=== PATIENT | female | born 1985 | race Caucasian/White ===

== ENCOUNTER 2023-08-04 08:29 | Emergency (ER) | payer OTHER, SELFPAY ==
[2023-08-04 08:33] VITALS: BP 147/89; PULSE 89; RESP 20; TEMP 37; O2SAT 98; BMI 29.2
[2023-08-04 09:09] LABS: Influenza Virus A Antigen Negative; Influenza Virus B Antigen Negative; Internal Control Within Normal Limits
--- NOTE | 2023-08-04 09:28 | XR_ITS ---
[facility] [id number] Patient Name: SHELBY RICHARDSON MRN: [id number] date: 1985 Sex: F Assigned Patient Location: ER Current Patient Location: Accession/Order Number: [id number] Exam Date: 08/04/2023 09:35 Report Date: 08/04/2023 10:09 At the request of: ROSEMARIE STRAUSS Procedure: XR chest 1V XR chest 1V 08/04/2023 9:35 AM EST INDICATION: Dyspnea x2 days COMPARISON: No prior radiograph the chest available for comparison at the time of this dictation. FINDINGS: Cardiomediastinal silhouette within normal limits. Bilateral perihilar bronchial wall thickening. No lobar consolidation or pleural effusion. No pneumothorax. Radiopaque foreign bodies overlying the areola bilaterally likely body piercings. No acute fracture or dislocation XR/XR chest 1V IMPRESSION: Inflammatory versus infectious bronchitis/bronchiolitis. Electronically authenticated by: CHAYO ECHEVERRIA Date: 08/04/2023 10:09
--- NOTE | 2023-08-04 09:29 | ED_ITS ---
HPI - URI/Sore Throat General Chief Complaint: Upper Respiratory Infection Stated Complaint: URTI Time Seen by Provider: 08/04/23 09:28 Source: patient Limitations: no limitations History of Present Illness HPI Narrative: patient presents with onset of chills, slight sore throat, aches and pains her whole body. Headache. , l loose stool diarrhea. She's had Covid previously. She did take a Covid test today at home and it was negative.she did not have a shortness of breath her pulse oximetry here is ninety-eight percent with no labored respiratory effort. She's not on any antibiotics. Related Data Home Medications Medication Instructions Recorded Confirmed hydroxyzine pamoate 25 mg capsule 25 mg PO BID 08/04/23 08/04/23 Allergies Allergy/AdvReac Type Severity Reaction Status Date / Time No Known Drug Allergies Allergy Verified 08/04/23 08:33 PFSH PFS Social History Smoking status: Former smoker Exam Narrative Exam Narrative: vital signs are stable afebrile pulse oximetry normal. There is no respiratory distress. She moves about comfortably. She does not appear ill but does appear like she feels uncomfortable. There is no bronchospasm or coughing while we were interviewing the patient. Skin is warm and dry. A influenza test had been done and is negative. With her having congestion in her chest we will rule out pneumonia with a chest x-ray. She has classic symptoms of viremia. Neurological examination is no evidence of abnormal cognition or meningeal irritation. Constitutional Vital Signs, click to edit/add: Last Vital Signs Temp 98.6 F 08/04/23 08:33 Pulse 89 08/04/23 08:33 Resp 20 08/04/23 08:33 BP 147/89 H 08/04/23 08:33 Pulse Ox 98 08/04/23 08:33 O2 Del Method Room Air 08/04/23 08:33 Course Vital Signs Vital signs: Vital Signs Temperature 98.6 F 08/04/23 08:33 Pulse Rate 89 08/04/23 08:33 Respiratory Rate 20 08/04/23 08:33 Blood Pressure 147/89 H 08/04/23 08:33 Pulse Oximetry 98 08/04/23 08:33 Oxygen Delivery Method Room Air 08/04/23 08:33 Temperature 98.6 F 08/04/23 08:33 Pulse Rate 89 08/04/23 08:33 Respiratory Rate 20 08/04/23 08:33 Blood Pressure 147/89 H 08/04/23 08:33 Pulse Oximetry 98 08/04/23 08:33 Oxygen Delivery Method Room Air 08/04/23 08:33 MDM - URI/Sore Throat MDM Narrative Medical decision making narrative: patient pills with constitutional symptoms consistent with a viremia. I encouraged her repeat Covid testing in forty-eight hours since we are now seeing and uptick. Influenza is negative chest x-rays normal vitals are stable no hypox emia. Supportive care was advised Lab Data Labs: Lab Results 08/04/23 Range/Units 08:45 Influenza Type A Ag Negative Influenza Type B Ag Negative Discharge Plan Discharge Chief Complaint: Upper Respiratory Infection Clinical Impression: Viremia Patient Disposition: Home, Self-Care Time of Disposition Decision: 09:43 Prescriptions / Home Meds: No Action hydroxyzine pamoate 25 mg capsule 25 mg PO BID Additional Instructions: alternate ibuprofen with Tylenol for fever control. Repeat Covid test forty- eight hours. Take plenty fluids to stay hydrated. Return for any difficulty breathing Stand Alone Forms: Portal Instructions Referrals: Physician,Non-Staff, [Primary Care Provider] - 1 week
== END 2023-08-04 09:51 | disposition home or self-care (01) ==
PROVIDERS: Emergency Provider Emergency Medicine Emergency Medical Services
DX: B34.9 Viral infection, unspecified (principal); Z87.891 Personal history of nicotine dependence; Z86.16 Personal history of COVID-19; Z79.899 Other long term (current) drug therapy
CPT/HCPCS: 71045; 87804; 99283

== ENCOUNTER 2023-12-11 18:05 | Emergency (ER) | payer OTHER, SELFPAY ==
[2023-12-11 18:10] VITALS: BP 159/89; PULSE 95; TEMP 37.7; O2SAT 98; BMI 28.3
--- OUTSIDE RECORDS SUMMARY | 2023-12-11 18:13 | XMS_ITS | CCD ---
Author Organization [facility] Care Team Providers Care Floor Cleaner Name Role Phone Jase Parish Unavailable MARKER, DR ALARCON Attending Unavailable MARKER, DR ALARCON Consulting Unavailable MISC, DR ROSE Primary Care Unavailable MARKER, DR ALARCON Admitting Unavailable TORIN ENGEL Consulting Unavailable MARKER, DR ALARCON Admitting Unavailable MARKER, DR ALARCON Attending Unavailable MARKER, DR ALARCON Consulting Unavailable MISC, DR ROSE Primary Care Unavailable Medications Current Medications Medication Drug Class(es) Dates Sig (Normalized) Sig (Original) acetaminophen 325 mg / HYDROcodone bitartrate 5 mg oral tablet (1 source) Opioid Agonist Start: 09-20-2021 take 1 tablet by mouth every four hours as needed for pain HYDROcodone-Aceta minophen 5-325 MG 1 tablet as needed for pain Orally up to every 4 hrs for 5 days Sep, Active Completed/Discontinued Medications Medication Drug Class(es) Dates Sig (Normalized) Sig (Original) hydrOXYzine hydrochloride 25 mg oral tablet (1 source) Antihistamine Start: 06-26-2016 take 1 tablet by mouth every eight hours hydrOXYzine HCl 25 MG 1 tablet as needed Orally every 8 hrs Jun, Not-Taking methylPREDNISolone 4 mg oral tablet (1 source) Corticosteroid Start: 06-26-2016 Medrol 4 MG as directed Orally Jun, Not-Taking metroNIDAZOLE 500 mg oral tablet (1 source) Nitroimidazole Antimicrobial Start: 01-13-2021 take 1 tablet by mouth every twelve hours metroNIDAZOLE 500 MG 1 tablet Orally Twice a day for 7 days January, Not-Taking Problems Active Problems Problem Classification Problem Date Documented Da te Episodic/Chronic Other upper respiratory infections (1 source) Acute upper respiratory infection, unspecified; Translations: [ACUTE UP RESPIRATORY INFECTION UNS] Onset: 04-14-2022 Episodic Otitis media and related conditions (1 source) Otitis media, unspecified, left ear; Translations: [OTITIS MEDIA UNSPECIFIED LEFT EAR] Onset: 04-14-2022 Episodic Substance-related disorders (1 source) Nicotine dependence, cigarettes, uncomplicated; Translations: [NICOTINE DEPEND CIGARETTES UNCOMP] Onset: 04-14-2022 Chronic Unclassified (3 sources) COUGH, UNSPECIFIED; Translations: [COUGH, UNSPECIFIED] Onset: 04-14-2022 Past or Other Problems Problem Classification Problem Date Documented Da te Episodic/Chronic E Codes: Fall (1 source) Fall on same level due to ice and snow, initial encounter; Translations: [FALL SAME LEVEL D/T ICE SNOW INIT] Onset: 09-19-2021 Episodic Other connective tissue disease (3 sources) Pain in right foot; Translations: [PAIN IN RIGHT FOOT] Onset: 09-15-2021 Episodic Screening and history of mental health and substance abuse codes (1 source) Personal history of nicotine dependence; Translations: [PERSONAL HISTORY OF NICOTINE DEPEND] Onset: 09-19-2021 Episodic Sprains and strains (3 sources) Sprain of unspecified ligament of right ankle, initial encounter; Translations: [Unspecified sprain of right foot, initial encounter] Onset: 09-19-2021 Resolved: 09-20-2021 Episodic Unclassified (1 source) COUGH, UNSPECIFIED; Translations: [COUGH, UNSPECIFIED] Onset: 04-13-2022 Results Test Name Value Interpretation Reference Range Facility XR FOOT RT MIN 3 VIEWSon XR FOOT RT MIN 3 VIEWS EXAM: XR FOOT RT MIN 3 VIEWS, XR ANKLE RT MIN 3 VIEWS HISTORY: Arthralgia of the ankle and/or foot COMPARISON: None. TECHNIQUE: 3 views of the right ankle and 3 views of the right foot were obtained. FINDINGS: No acute fracture or dislocation is seen. The joint spaces are preserved. The ankle mortise is congruent. There is no significant right ankle joint effusion. There is soft tissue edema overlying the lateral malleolus. IMPRESSION: 1. Soft tissue edema overlying the right lateral malleolus with no acute abnormality of the ankle or foot seen. If pain persists, repeat radiographs are recommended in 7-10 days. Electronically authenticated by: Antonio ENGEL Date: 2021-09-15 02:[address] [facility] Vaginitis Plus (VG+)on 01-13 Atopobium Vaginae High - 2 Critically abnormal . [facility] Comment on above: Order Comment: Reaso n for Exam High risk sexual behavior, unspecified type Specimen Comment: Test(s) 488521-Mavdoal albicans, MICHELLE; 375561- Specimen Comment: Renée glabrata, MICHELLE Specimen Comment: was developed and its performance characteristics Specimen Comment: determined by [facility]. It has not been cleared or approved Specimen Comment: by the Food and Drug Administration. Performed By: #### V AGINITIS+ #### [facility] , BVAB2 High - 2 Critically abnormal . [facility] Comment on above: Order Comment: Reaso n for Exam High risk sexual behavior, unspecified type Specimen Comment: Test(s) 871368-Fqpcnid albicans, MICHELLE; 764615- Specimen Comment: Renée glabrata, MICHELLE Specimen Comment: was developed and its performance characteristics Specimen Comment: determined by [facility]. It has not been cleared or approved Specimen Comment: by the Food and Drug Administration. Performed By: #### V AGINITIS+ #### [facility] , Renée Albicans, MICHELLE Negative Normal Negative [facility] Comment on above: Order Comment: Reaso n for Exam High risk sexual behavior, unspecified type Specimen Comment: Test(s) 688291-Urfqhrc albicans, MICHELLE; 331912- Specimen Comment: Renée glabrata, MICHELLE Specimen Comment: was developed and its performance characteristics Specimen Comment: determined by [facility]. It has not been cleared or approved Specimen Comment: by the Food and Drug Administration. Performed By: #### V AGINITIS+ #### [facility] , Renée Glabrata, MICHELLE Negative Normal Negative [facility] Comment on above: Order Comment: Reaso n for Exam High risk sexual behavior, unspecified type Specimen Comment: Test(s) 261730-Bftoplo albicans, MICHELLE; 680196- Specimen Comment: Renée glabrata, MICHELLE Specimen Comment: was developed and its performance characteristics Specimen Comment: determined by [facility]. It has not been cleared or approved Specimen Comment: by the Food and Drug Administration. Result Comment: PERF ORMED BY: [facility] [place] [address] [place] [address] PATHOLOGIST HOUSE CARPENTER HELPER FROILAN DODSON M.D. Performed By: #### V AGINITIS+ #### [facility] , Chlamydia Trachomotis, MICHELLE Negative Normal Negative [facility] Comment on above: Order Comment: Reaso n for Exam High risk sexual behavior, unspecified type Specimen Comment: Test(s) 228695-Ygmbxcf albicans, MICHELLE; 181434- Specimen Comment: Renée glabrata, MICHELLE Specimen Comment: was developed and its performance characteristics Specimen Comment: determined by [facility]. It has not been cleared or approved Specimen Comment: by the Food and Drug Administration. Performed By: #### V AGINITIS+ #### [facility] , Megasphaera High - 2 Critically abnormal . [facility] Comment on above: Order Comment: Reaso n for Exam High risk sexual behavior, unspecified type Specimen Comment: Test(s) 258161-Cnmschm albicans, MICHELLE; 465389- Specimen Comment: Renée glabrata, MICHELLE Specimen Comment: was developed and its performance characteristics Specimen Comment: determined by [facility]. It has not been cleared or approved Specimen Comment: by the Food and Drug Administration. Result Comment: Calc ulate total score by adding the 3 individual bacterial vaginosis (BV) marker scores together. Total score is interpreted as follows: Total score 0-1: Indicates the absence of BV. Total score 2: Indeterminate for BV. Additional clinical data should be evaluated to establish a diagnosis. Total score 3-6: Indicates the presence of BV. This test was developed and its performance characteristics determined by [facility]. It has not been cleared or approved by the Food and Drug Administration. Performed By: #### V AGINITIS+ #### [facility] , Neisseria Gonorrhoeae, MICHELLE Negative Normal Negative [facility] Comment on above: Order Comment: Reaso n for Exam High risk sexual behavior, unspecified type Specimen Comment: Test(s) 101020-Mvhapni albicans, MICHELLE; 209518- Specimen Comment: Renée glabrata, MICHELLE Specimen Comment: was developed and its performance characteristics Specimen Comment: determined by [facility]. It has not been cleared or approved Specimen Comment: by the Food and Drug Administration. Result Comment: Perf ormed at: - [facility] [address] [id number] [place]: Christie Jaquez MD, Phone: [phone] Performed By: #### V AGINITIS+ #### [facility] , Tric Vag MICHELLE Negative Normal Negative [facility] Comment on above: Order Comment: Reaso n for Exam High risk sexual behavior, unspecified type Specimen Comment: Test(s) 366589-Vkzxzly albicans, MICHELLE; 965281- Specimen Comment: Renée glabrata, MICHELLE Specimen Comment: was developed and its performance characteristics Specimen Comment: determined by [facility]. It has not been cleared or approved Specimen Comment: by the Food and Drug Administration. Performed By: #### V AGINITIS+ #### [facility] , Encounters Encounter Date Encounter Type Care Provider Facility Start: 04-13-2022 End: 04-13-[address] DORIAN APPLE Facility:[facility] Start: 09-20-2021 End: 09-20-2021 ambulatory Jase Parish Other [facility] Other Start: 09-20-2021 Office outpatient ne w 30 minutes Jase Parish [facility] Start: 09-15-2021 End: 09-15-[address] DORIAN APPLE Facility:[facility] Payers Date Payer Category Payer Unknown [id number] 1985 Unknown [id number] 1959 Unknown [id number] Social History Date Type Detail Facility Unknown if ever smoked [facility] Other Sex Assigned At Sex Assigned At Bir th [facility] Other Evaluation note 09-20-2021 Note Date & Type Note Facility 09-20-2021 Evaluation note Encounter Date Diagnosis Assessment Notes Sep, Sprain of right ankle, unspecified ligament, initial encounter (ICD-10 - S93.401A) The patient appears to have suffered an anterolateral ankle sprain. We will allow progressive gentle ankle motion as pain allows as well as gentle weight bearing. We discussed the importance of icing and elevation of the leg above the heart to prevent swelling. We discussed that this injury will most likely cause pain for many weeks. Placed patient in short cam walker boot. Provided order for knee scooter due to their diagnosis of right ankle sprain. This is needed for aid in activities of daily living by increasing safety and stability. This will be needed for approximately 6 months. [facility] Other History general Narrative - Reported Note Date & Type Note Facility History general Narrative - Reported Type Surgical History facial cosmetic surgery Surgical History partial hysterectomy Surgical History breast lump removed [facility] Other Summary Purpose Family History No Family History Records FoundNo Family History Records Found Advance Directives No Advanced Directives Records FoundNo Advanced Directives Records Found Additional Source Comments INFORMATION SOURCE (unrecogn ized section and content) DATE CREATED AUTHOR 10/02/2021 [facility] DATE CREATED AUTHOR AUTHOR'S ORGANIZ ATION 04/14/2022 [facility] REASON FOR VISIT (unrecogniz ed section and content) Right Ankle/Foot Pain FOR RECORDS PERTAINING TO PATIENTS WHO ARE OR HAVE BEEN ENROLLED IN A CHEMICAL DEPENDENCY/SUBSTANCEABUSE PROGRAM, SOME INFORMATION MAY BE OMITTED. This clinical summary was aggregated from multiple sources. Caution should be exercised in using it in the provision of clinical care. This summary normalizes information from multiple sources, and as a consequence, information in this document may materially change the coding, format and clinical context of patient data. In addition, data may be omitted in some cases. CLINICAL DECISIONS SHOULD BE BASED ON THE PRIMARY CLINICAL RECORDS. [employer] provides no warranty or guarantee of the accuracy or completeness of information in this document.
--- NOTE | 2023-12-11 18:36 | ED_ITS ---
HPI - Female Genitourinary General Chief complaint: Urogenital-Female Stated complaint: UTI Time Seen by Provider: 12/11/23 18:10 Source: patient Mode of arrival: walk-in Limitations: no limitations History of Present Illness HPI Narrative: 38-year-old female presents to the emergency department with concern about urinary tract infection and STI. Started having some burning with urination about 4 days ago. She has also been having some vaginal discharge with odor and some low back pain. States she has been having intercourse with new partner. Feels some pressure to the suprapubic region. Denies fever, chills, nausea, vomiting, abdominal pain, hematuria. Quality: as above Severity: moderate Timing: as above, constant Context: Normal setting and activity Modifying factors: none Associated symptoms: as above Related Data Home Medications ?Medication ?Instructions ?Recorded ?Confirmed hydroxyzine pamoate 25 mg capsule 25 mg PO BID 08/04/23 08/04/23 Previous Rx's ?Medication ?Instructions ?Recorded doxycycline hyclate 100 mg capsule 100 mg PO BID 7 days #14 caps 12/11/23 Allergies Allergy/AdvReac Type Severity Reaction Status Date / Time No Known Drug Allergies Allergy Verified 08/04/23 08:33 Review of Systems ROS Narrative CONST: Denies any fever, chills HENT: Denies any congestion, sore throat RESP: Denies any cough, shortness of breath CV: Denies any chest pain, peripheral edema GI: Denies any abd pain, nausea, vomiting, diarrhea : + dysuria, discharge. Denies any flank pain MS: + back pain. Denies any myalgias SKIN: Denies any color change, rash, itching NEURO: Denies numbness, weakness PSYCHIATRIC: Denies confusion, agitation PFSH PFSH Social History Smoking status: Former smoker Exam Narrative Exam Narrative: Vital signs reviewed Nurses notes noted CONST: Nontoxic, well appearing, well nourished, in no distress.? No diaphoresis.?? HENT: normocephalic, atraumatic, moist mucous membrane, no abnormalities of the nose noted, hearing normal EYES: normal appearing conjunctiva, no apparent discharge bilat NECK: normal appearance CV: normal rate, regular rhythm, no murmur RESP: normal effort, speaking in complete sentences. Lung sounds clear and equal bilat.? No wheezes, rales, rhonchi GI: normal bowel sounds, soft, no distension, nontender : Exam performed under direct supervision of drier unloader, FLOYD Amanda No external genital lesion No OS, HX of hysterectomy No blood in vault + thick, white D/C in vault. No plaque-like to suggest yeast. Denies itching No suprapulbic enlargement or tenderness No adnexal tenderness or fullness MS: no edema, edema SKIN: no pallor MS: no edema, tenderness SKIN: no pallor NEURO: A&Ox 3, no focal findings PSYCH: normal mood, affect Constitutional Vital Signs, click to edit/add: Last Vital Signs Temp 99.8 F 12/11/23 18:10 Pulse 95 H 12/11/23 18:10 Resp 17 12/11/23 18:10 BP 159/89 H 12/11/23 18:10 Pulse Ox 98 12/11/23 18:10 O2 Del Method Room Air 12/11/23 18:10 Course Vital Signs Vital signs: Vital Signs Temperature 99.8 F 12/11/23 18:10 Pulse Rate 95 H 12/11/23 18:10 Respiratory Rate 17 12/11/23 18:10 Blood Pressure 159/89 H 12/11/23 18:10 Pulse Oximetry 98 12/11/23 18:10 Oxygen Delivery Method Room Air 12/11/23 18:10 Temperature 99.8 F 12/11/23 18:10 Pulse Rate 95 H 12/11/23 18:10 Respiratory Rate 17 12/11/23 18:10 Blood Pressure 159/89 H 12/11/23 18:10 Pulse Oximetry 98 12/11/23 18:10 Oxygen Delivery Method Room Air 12/11/23 18:10 MDM - Female Genitourinary MDM Narrative Medical decision making narrative: This is a pleasant 38-year-old female presents emergency department concern of UTI versus STI. Has been having some dysuria and vaginal discharge for the past 4 days after intercourse with partner she had not been with in a long time. Has had a little pressure over the suprapubic region and some lower back pain. On arrival, afebrile, vital signs are stable. Exam, nontoxic, well-appearing patient in no distress. Heart regular rate and rhythm. Lung sounds clear and equal bilaterally. Abdomen soft, nontender. No CVA tenderness. On chaperoned pelvic exam, there is whitish material within the vault. No appreciable malodor. Cervix, uterus absent secondary to prior surgery. No suprapubic tenderness. No adnexal tenderness. Urinalysis reveals some bacteria, culture sent, otherwise unremarkable And lieu of white discharge within the vault and surgically absent cervix and uterus, will treat for infection. She was given dose of Rocephin and doxycycline. Will be given prescription for doxycycline. Vaginitis favored based on history and physical exam UTI less likely based on laboratory testing TOA less likely based on physical exam. Afebrile. No tenderness. Disposition ? The patient was discharged. Plan: Patient will be discharged to home. Condition at time of disposition: stable She was given prescription for doxycycline Advised to follow up with primary provider. Advised to return for any worsening and/or development of new, concerning signs or symptoms PLEASE NOTE: Portions of the medical record may have been produced using electronic news wire photo operator and may contain errors with respect to translation of words which may not have been identified prior to finalization of the chart. Medical Records Attestation: I reviewed the patient's medical records. Lab Data Attestation: I reviewed the patient's lab results. Labs: Lab Results 12/11/23 Range/Units 18:55 Urine Color Lt. yellow (YELLOW) Urine Clarity Clear (CLEAR) Urine pH 7.5 (5.0-9.0) Ur Specific [place] 1.025 (1.005-1.025) Urine Protein Negative (NEG/TRACE) mg/dL Urine Glucose (UA) Negative (NEGATIVE) mg/dL Urine Ketones Negative (NEGATIVE) mg/dL Urine Occult Blood Negative (NEGATIVE) Urine Nitrite Negative (NEGATIVE) Urine Bilirubin Negative (NEGATIVE) Urine Urobilinogen 0.2 (0.2-1.0) EU/dL Ur Leukocyte Esterase Negative (NEGATIVE) Urine RBC 0-2 (0-2) #/HPF Urine WBC None seen (NONE SEEN) #/HPF Ur Squamous Epith Cells Few A (NONE/RARE) #/LPF Urine Crystals Seen A (None Seen) #/HPF Amorphous Sediment Many Urine Bacteria Moderate A (NONE SEEN) #/HPF Urine Casts None seen (NONE SEEN) #/LPF Urine Mucus None seen (NONE SEEN) Ur Culture Indicated? Yes Discharge Plan Discharge Stand Alone Forms: Portal Instructions Chief Complaint: Urogenital-Female Clinical Impression: Vaginal discharge, Dysuria Vaginitis Qualifiers: Chronicity: acute Qualified Code(s): N76.0 - Acute vaginitis Patient Disposition: Home, Self-Care Time of Disposition Decision: 19:32 Condition: Good Mode of Transportation: Private Vehicle Prescriptions / Home Meds: New doxycycline hyclate 100 mg capsule 100 mg PO BID 7 Days Qty: 14 0RF No Action hydroxyzine pamoate 25 mg capsule 25 mg PO BID Print Language: Faroese Instructions: Vaginal Discharge (ED) Referrals: [facility] [Primary Care Provider] - 1 week
[2023-12-11 19:02] LABS: Bilirubin Urine NEGATIVE (NEGATIVE); Blood Urine NEGATIVE (NEGATIVE); Clarity Urine CLEAR (CLEAR); Color Urine LT. YELLOW (YELLOW); Glucose Urine UA NEGATIVE (NEGATIVE); Ketones Urine NEGATIVE (NEGATIVE); Leukocyte Esterase Urine NEGATIVE (NEGATIVE); Nitrite Urine NEGATIVE (NEGATIVE); Protein Urine NEGATIVE (NEG/TRACE); Specific Gravity Urine 1.025 (1.005-1.025); Urobilinogen Urine 0.2 EU/dL (0.2-1.0); pH Urine 7.5 (5.0-9.0)
[2023-12-11 19:06] LABS: Urine Microscopic Indicated YES
[2023-12-11 19:10] LABS: Bacteria Urine MODERATE #/HPF (NONE SEEN); Crystals Seen? Seen #/HPF (None Seen); Mucus Urine NONE SEEN (NONE SEEN); RBC Urine 0-2 #/HPF (0-2); Squamous Epithelial Cell Urine FEW #/LPF (NONE/RARE); WBC Urine NONE SEEN #/HPF (NONE SEEN)
[2023-12-11 19:11] LABS: Amorphous Sediment Urine MANY; Cast Seen? NONE SEEN #/LPF (NONE SEEN); Urine Culture Indicated YES
[2023-12-11] MEDS: CEFTRIAXONE 500 MG, LIDOCAINE HCL/PF 1 ML IM (19:48)
[2023-12-11] MEDS: DOXYCYCLINE MONOHYDRATE 100 MG CAPSULE PO (19:48)
[2023-12-11 19:50] VITALS: BP 131/82; PULSE 80; O2SAT 99
[2023-12-13 22:06] LABS: Neisseria gonorrhoeae, NAA Negative (Negative)
--- NOTE | 2023-12-15 08:37 | PC.NURSE ---
12/15/23 pt urine C+S reviewed by dr patel from 12/11/23 NO to stop doxycycline and start Keflex 500 mg QID times 7 days called into pt pharmacy [facility] [phone], called and LM for pt to update, awaiting return call. Candi Elias RN
--- NOTE | 2023-12-15 09:12 | PC.NURSE ---
12/15/23 0912 pt returned called updated to stop doxycycline, start Keflex called into pt pharmacy as ordered by dr patel, pt educated to take all atb as ordered and follow up with pcp. pt v/brii Elias RN
== END 2023-12-11 19:50 | disposition home or self-care (01) ==
PROVIDERS: Physician Assistant; Emergency Provider Emergency Medicine
DX: N76.0 Acute vaginitis (principal); R30.0 Dysuria; Z87.891 Personal history of nicotine dependence; Z79.899 Other long term (current) drug therapy
CPT/HCPCS: 81001; 87086; 87150; 87186; 87210; 87491; 87591; 96372; 99285

== ENCOUNTER 2024-02-10 16:04 | Emergency (ER) | payer OTHER, SELFPAY ==
[2024-02-10 16:09] VITALS: BP 130/84; PULSE 120; TEMP 36.9; O2SAT 98; BMI 28.3
--- OUTSIDE RECORDS SUMMARY | 2024-02-10 16:13 | XMS_ITS | CCD ---
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 [facility] Comment on above: Order Comment: Reaso n for Exam High risk sexual behavior, unspecified type Specimen Comment: Test(s) 026872-Cqokmkm albicans, MICHELLE; 037032- Specimen Comment: Renée glabrata, MICHELLE Specimen Comment: was developed and its performance characteristics Specimen Comment: determined by [facility]. It has not been cleared or approved Specimen Comment: by the Food and Drug Administration. Performed By: #### V AGINITIS+ #### [facility] , BVAB2 High - 2 Critically abnormal . [facility] Comment on above: Order Comment: Reaso n for Exam High risk sexual behavior, unspecified type Specimen Comment: Test(s) 528096-Fzhenbn albicans, MICHELLE; 556143- Specimen Comment: Renée glabrata, MICHELLE Specimen Comment: was developed and its performance characteristics Specimen Comment: determined by [facility]. It has not been cleared or approved Specimen Comment: by the Food and Drug Administration. Performed By: #### V AGINITIS+ #### [facility] , Renée Albicans, MICHELLE Negative Normal Negative [facility] Comment on above: Order Comment: Reaso n for Exam High risk sexual behavior, unspecified type Specimen Comment: Test(s) 511452-Bobiwru albicans, MICHELLE; 309816- Specimen Comment: Renée glabrata, MICHELLE Specimen Comment: was developed and its performance characteristics Specimen Comment: determined by [facility]. It has not been cleared or approved Specimen Comment: by the Food and Drug Administration. Performed By: #### V AGINITIS+ #### [facility] , Renée Glabrata, MICHELLE Negative Normal Negative [facility] Comment on above: Order Comment: Reaso n for Exam High risk sexual behavior, unspecified type Specimen Comment: Test(s) 183392-Uwiaucc albicans, MICHELLE; 501908- Specimen Comment: Renée glabrata, MICHELLE Specimen Comment: was developed and its performance characteristics Specimen Comment: determined by [facility]. It has not been cleared or approved Specimen Comment: by the Food and Drug Administration. Result Comment: PERF ORMED BY: [place] [address] [place] [address] PATHOLOGIST SCRIPT GIRL FROILAN DODSON M.D. Performed By: #### V AGINITIS+ #### [facility] , Chlamydia Trachomotis, MICHELLE Negative Normal Negative [facility] Comment on above: Order Comment: Reaso n for Exam High risk sexual behavior, unspecified type Specimen Comment: Test(s) 326845-Tzkpnki albicans, MICHELLE; 714290- Specimen Comment: Renée glabrata, MICHELLE Specimen Comment: was developed and its performance characteristics Specimen Comment: determined by [facility]. It has not been cleared or approved Specimen Comment: by the Food and Drug Administration. Performed By: #### V AGINITIS+ #### [facility] , Megasphaera High - 2 Critically abnormal . [facility] Comment on above: Order Comment: Reaso n for Exam High risk sexual behavior, unspecified type Specimen Comment: Test(s) 378577-Honupcd albicans, MICHELLE; 171099- Specimen Comment: Renée glabrata, MICHELLE Specimen Comment: [...] , Neisseria Gonorrhoeae, MICHELLE Negative Normal Negative [facility] Comment on above: Order Comment: Reaso n for Exam High risk sexual behavior, unspecified type Specimen Comment: Test(s) 985671-Bfbiqhs albicans, MICHELLE; 685649- Specimen Comment: Renée glabrata, MICHELLE Specimen Comment: was developed and its performance characteristics Specimen Comment: determined by [facility]. It has not been cleared or approved Specimen Comment: by the Food and Drug Administration. Result Comment: Perf ormed at: [facility] - [facility] [address] [id number] Take Away Attendant: Christie Jaquez MD, Phone: [phone] Performed By: #### V AGINITIS+ #### [facility] , Tric Vag MICHELLE Negative Normal Negative [facility] Comment on above: Order Comment: Reaso n for Exam High risk sexual behavior, unspecified type Specimen Comment: Test(s) 533450-Fxjphhc albicans, MICHELLE; 107070- Specimen Comment: Renée glabrata, MICHELLE Specimen Comment: [...] 09-20-2021 End: 09-20-2021 ambulatory Jase Parish Other [facility] Start: 09-20-2021 Office outpatient ne w 30 minutes Jase Parish [facility] Start: 09-15-2021 End: 09-15-[address] DORIAN APPLE Facility:[facility] Payers Date Payer Category Payer Unknown [id number] 1985 Unknown [id number] 1959 Unknown [id number] Social History Date Type Detail Facility Unknown if ever smoked [facility] Other Sex Assigned At Sex Assigned At Bir th [facility] Other Evaluation note 09-20-2021 Note Date & [...] will be needed for approximately 6 months. [facility] Other History general Narrative - Reported Note Date & Type Note Facility History general Narrative - Reported Type Surgical History facial cosmetic surgery Surgical History partial hysterectomy Surgical History breast lump removed [facility] Other Summary Purpose Family History No Family History Records FoundNo Family History Records Found Advance Directives No Advanced Directives Records FoundNo Advanced Directives Records Found Additional Source Comments INFORMATION SOURCE (unrecogn ized section and content) DATE CREATED AUTHOR 10/02/2021 [facility] DATE CREATED AUTHOR AUTHOR'S ORGANIZ ATION 04/14/2022 [facility] REASON FOR VISIT (unrecogniz ed [...] BE BASED ON THE PRIMARY CLINICAL RECORDS. [facility]. provides no warranty or guarantee of the accuracy or completeness of information in this document.
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
[2024-02-10] MEDS: OXYCODONE HCL/ACETAMINOPHEN 5MG/325MG 1 TAB PO (16:46)
[2024-02-10] MEDS: ORPHENADRINE 60 MG/ 2 ML VIAL IM (16:47)
== END 2024-02-10 18:00 | disposition home or self-care (01) ==
PROVIDERS: Emergency Provider Emergency Medicine
DX: S89.92XA Unspecified injury of left lower leg, initial encounter (principal); X50.9XXA Other and unspecified overexertion or strenuous movements or postures, initial encounter; Z87.891 Personal history of nicotine dependence
CPT/HCPCS: 73552; 96372; 99284